=== PATIENT | female | born 1955 | race African-American/Black ===

== ENCOUNTER 2022-04-06 05:35 | Emergency (ER) | payer OTHER ==
[2022-04-06] MEDS ORDERED: Dexamethasone 4 MG TAB ONE (06:28)
== END 2022-04-06 06:45 | disposition home or self-care (01) ==
LOC: CSHERS 05:35
DX: U07.1 COVID-19 (principal); E11.9 Type 2 diabetes mellitus without complications; I10 Essential (primary) hypertension; E78.00 Pure hypercholesterolemia, unspecified
CPT/HCPCS: 93005; 99283; U0003; U0005; J8540

== ENCOUNTER 2023-04-09 08:10 | Emergency (ER) | payer OTHER ==
[2023-04-09] MEDS ORDERED: Ketorolac Tromethamine 30 MG (1 mL) VIAL ONE (09:08)
[2023-04-09] MEDS ORDERED: Dexamethasone 10 MG/ML VIAL ONE (09:08)
== END 2023-04-09 09:50 | disposition home or self-care (01) ==
LOC: CSHERS 08:10
DX: U07.1 COVID-19 (principal); E11.9 Type 2 diabetes mellitus without complications; I10 Essential (primary) hypertension
CPT/HCPCS: 96372; 99284; J1100; J1885

== ENCOUNTER 2024-02-26 09:12 | Emergency (ER) | payer OTHER | END 2024-02-26 10:17 | disposition home or self-care (01) | LOC: CSHERS 09:12 | DX: J32.0 Chronic maxillary sinusitis (principal); K59.00 Constipation, unspecified; R05.9 Cough, unspecified; E11.9 Type 2 diabetes mellitus without complications; I10 Essential (primary) hypertension | CPT/HCPCS: 99283 ==

== ENCOUNTER 2024-10-29 09:40 | Emergency (ER) | payer OTHER ==
[2024-10-29] MEDS ORDERED: Acetaminophen 500 MG TAB ONE (10:18)
== END 2024-10-29 11:28 | disposition home or self-care (01) ==
LOC: CSHERS 09:40
DX: S09.90XA Unspecified injury of head, initial encounter (principal); S49.92XA Unspecified injury of left shoulder and upper arm, initial encounter; E11.9 Type 2 diabetes mellitus without complications; I10 Essential (primary) hypertension; W20.8XXA Other cause of strike by thrown, projected or falling object, initial encounter
CPT/HCPCS: 70450